=== PATIENT | male | born 1995 | race Caucasian/White ===

== ENCOUNTER → 2016-09-06 | Emergency (ER) | payer MEDICAID ==
[~2016-09-06] VITALS: Ht 190.5 cm; Wt 81.6 kg
[2016-09-06 22:41] VITALS: BP 130/75
== END | disposition home or self-care (01) ==
LOC: M ED 22:41
DX: R11.10 Vomiting, unspecified (principal); Z53.21 Procedure and treatment not carried out due to patient leaving prior to being seen by health care provider

== ENCOUNTER 2017-03-18 01:18 | Emergency (ER) | payer MEDICAID ==
[~2017-03-18] VITALS: Ht 190.5 cm; Wt 82.0 kg
[2017-03-18] MEDS ORDERED: NAPROXEN 250 MG TAB PO ONE (01:30)
[2017-03-18] MEDS ORDERED: NAPR500T PO (01:45)
[2017-03-18 02:05] VITALS: BP 130/69
== END 2017-03-18 02:12 | disposition home or self-care (01) ==
LOC: M ED 01:18
DX: S00.01XA Abrasion of scalp, initial encounter (principal); S06.0X0A Concussion without loss of consciousness, initial encounter; W50.1XXA Accidental kick by another person, initial encounter; Y92.099 Unspecified place in other non-institutional residence as the place of occurrence of the external cause; Y93.9 Activity, unspecified; Y99.9 Unspecified external cause status; B19.20 Unspecified viral hepatitis C without hepatic coma; F19.10 Other psychoactive substance abuse, uncomplicated

== ENCOUNTER → 2018-06-24 | Outpatient (CLI) | payer MEDICAID ==
[~2018-06-24] MED LIST: NAPR-50 PO
== END ==
LOC: M OUTALCOH 08:16
PROVIDERS: ATTEND Psychiatry & Neurology Psychiatry
DX: F12.20 Cannabis dependence, uncomplicated (principal)

== ENCOUNTER → 2018-07-21 | Outpatient (RCR) | payer MEDICAID | LOC: M OUTALCOH 07-07 13:00 | PROVIDERS: ATTEND Psychiatry & Neurology Psychiatry | DX: F12.20 Cannabis dependence, uncomplicated (principal) ==

== ENCOUNTER 2020-02-16 17:28 | Emergency (ER) | payer MEDICAID, SELFPAY ==
[~2020-02-16] VITALS: Ht 188 cm; Wt 70.7 kg
[2020-02-16 17:28] VITALS: BP 146/100
[~2020-02-16 17:28] MED LIST changes: -NAPR-50 PO; +NAPR-837 PO
== END 2020-02-16 20:00 | disposition left against medical advice (07) ==
LOC: M ED 17:28
DX: Z53.21 Procedure and treatment not carried out due to patient leaving prior to being seen by health care provider (principal)

== ENCOUNTER 2020-03-30 08:25 | Emergency (ER) | payer MEDICAID, OTHER, SELFPAY ==
[~2020-03-30] VITALS: Ht 188 cm; Wt 82.9 kg
[2020-03-30] MEDS ORDERED: DALBAVANCIN 1,500 MG in D5W 250 ML IV ONE (11:00)
[2020-03-30 11:48] VITALS: BP 134/89
--- NOTE | 2020-04-04 09:18 | REP ---
DUPLEX VENOUS ULTRASOUND LEFT LOWER EXTREMITY (REPEAT DICTATION) Preliminary report is provided at the time of exam by CRISTINA. HISTORY: Swelling, rule out deep vein thrombosis (DVT). FINDINGS: The deep veins are anechoic and fully compressible from the groin to the popliteal fossa in the left lower extremity on two-dimensional scanning. Color flow imaging is homogeneous. Spectral Doppler interrogation demonstrates intact respiratory variation in flow and normal manual augmentation in flow. There is no evidence of DVT. IMPRESSION: Negative left lower extremity duplex venous ultrasound. No evidence of deep vein thrombosis. MTDD
== END 2020-03-30 11:48 | disposition home or self-care (01) ==
LOC: M ED 08:25
DX: L03.116 Cellulitis of left lower limb (principal); F17.200 Nicotine dependence, unspecified, uncomplicated
CPT/HCPCS: 76882; 80047; 93971; 96365; 99284; J0875

== ENCOUNTER 2020-10-15 02:20 | Emergency (ER) | payer SELFPAY ==
[~2020-10-15] VITALS: Ht 188 cm; Wt 82.2 kg
[2020-10-15 02:20] VITALS: BP 158/86
== END 2020-10-15 03:48 | disposition left against medical advice (07) ==
LOC: M ED 02:20
DX: Z53.21 Procedure and treatment not carried out due to patient leaving prior to being seen by health care provider (principal)